=== PATIENT | male | born 1965 | race Caucasian/White ===

== ENCOUNTER 2025-05-15 06:19 | Day surgery (SDC) | payer OTHER, SELFPAY ==
[2025-05-15 08:51] VITALS: BMI 39.3
[2025-05-15 08:54] VITALS: BP 118/67
[2025-05-15 09:11] LABS: Glucose - Point of Care 120 mg/dl (70-99)
[2025-05-15 11:19] VITALS: BP 109/75
[2025-05-15 11:30] VITALS: BP 106/70
[2025-05-15 11:45] VITALS: BP 112/69
[2025-05-15 12:00] VITALS: BP 128/77
[2025-05-15 12:15] VITALS: BP 122/76
== END 2025-05-15 12:52 | disposition home or self-care (01) ==
LOC: GI 06:19
PROVIDERS: ATTENDING PHYSICIAN Internal Medicine Gastroenterology
DX: D12.3 Benign neoplasm of transverse colon (principal); K63.89 Other specified diseases of intestine; K57.30 Diverticulosis of large intestine without perforation or abscess without bleeding; R19.7 Diarrhea, unspecified; K22.70 Barrett's esophagus without dysplasia; K44.9 Diaphragmatic hernia without obstruction or gangrene; Z13.810 Encounter for screening for upper gastrointestinal disorder
CPT/HCPCS: 45380; 43239; 82962; 88305